=== PATIENT | male | born 1980 | race Caucasian/White ===

== ENCOUNTER 2018-02-23 08:02 | Outpatient (CLI) | payer OTHER ==
--- NOTE | 2018-02-23 11:38 | MRI ---
MRI OF THE RIGHT SHOULDER WITHOUT CONTRAST: INDICATION: Pain and swelling with a right shoulder mass. TECHNIQUE: Noncontrast MR images were submitted of the right shoulder. The patient could not complete the entir e examination due to discomfort. A surface marker was placed over the palpable region of interest. FINDINGS: There is a 5 x 4.2 x 2.4 cm fat signal intensity mass which is underlying the palpable region of inte rest without definite nodularity. There is some possible mild internal septation in the inferior asp ect of the lesion. There is mild AC joint osteoarthrosis. The rotator cuff is intact. The biceps anchor complex appears intact. The inferior glenohumeral labral ligamentous complex appears intact. The glenohumeral articular surface is normal appearing. No muscular atrophy is evident. There is re active edema involving the distal clavicle. IMPRESSION: 1. Mild acromioclavicular joint osteoarthrosis, reactive edema within the distal clavicle. 2. Fat signal intensity mass lesion underlying the palpable region of interest is suspicious for a s ubcutaneous lipoma. If this is symptomatic to the patient, a well-differentiated liposarcoma or atyp ical lipoma cannot be entirely excluded. 3. Mild acromioclavicular joint osteoarthrosis with reactive edema in the distal clavicle. POS: [facility]
== END 2018-02-23 08:03 | disposition home or self-care (01) ==
LOC: MRI 08:02
PROVIDERS: ATTEND Orthopaedic Surgery
DX: R22.31 Localized swelling, mass and lump, right upper limb (principal); M25.511 Pain in right shoulder; M19.012 Primary osteoarthritis, left shoulder; R60.0 Localized edema

== ENCOUNTER 2018-02-23 09:12 | Emergency (ER) | payer OTHER | END 2018-02-23 10:33 | disposition home or self-care (01) | LOC: ERS 09:12 | DX: R22.9 Localized swelling, mass and lump, unspecified (principal); M25.511 Pain in right shoulder; I10 Essential (primary) hypertension; Z87.891 Personal history of nicotine dependence; Z79.899 Other long term (current) drug therapy; X50.9XXA Other and unspecified overexertion or strenuous movements or postures, initial encounter | CPT/HCPCS: 99283 ==

== ENCOUNTER 2018-03-13 15:43 | Outpatient (CLI) | payer OTHER ==
[2018-03-13 16:28] LABS: Hemoglobin 15.8 g/dL (14.0-18.0); Mean Corpuscular Hemoglobin 27.9 pg (27.0-31.0); Mean Corpuscular Volume 84.6 fl (80.0-94.0); Mean Platelet Volume 7.5 fL (7.4-10.4); Platelet Count 296 thou/uL (130-400); RBC Distribution Width 13.3 % (11.5-14.5); Red Blood Cell (RBC) Count 5.66 mill/uL (4.70-6.10); White Blood Cell (WBC) Count 8.9 thou/uL (4.8-10.8)
[2018-03-13 16:41] LABS: Anion Gap 15 mmol/L (10-20); BUN (Urea Nitrogen) 17 mg/dL (8.9-20.6); Calc. Creatinine Clearance 0 mL/min (70-130); Calcium 9.6 mg/dL (7.8-10.44); Carbon Dioxide 25 mmol/L (22-29); Chloride 105 mmol/L (98-107); Estimated GFR-MDRD Greater than 90; Glucose 111 mg/dL (70-105); Potassium 4.6 mmol/L (3.5-5.1); Sodium 140 mmol/L (136-145)
== END 2018-03-13 15:44 | disposition home or self-care (01) ==
LOC: LABBT 15:43
PROVIDERS: ATTEND Orthopaedic Surgery
DX: Z01.818 Encounter for other preprocedural examination (principal); D17.21 Benign lipomatous neoplasm of skin and subcutaneous tissue of right arm; M25.511 Pain in right shoulder
CPT/HCPCS: 80048; 85027; 93005; 93010

== ENCOUNTER 2018-03-20 08:02 | Day surgery (SDC) | payer OTHER ==
[2018-03-13 16:01] VITALS: BMI 42.8
[2018-03-20] MEDS ORDERED: CEFAZOLIN/Water 2 GM/20 ML SYRINGE ONE (09:13)
[2018-03-20] MEDS ORDERED: Fentanyl 100 MCG/2 ML VIAL ONE (10:33)
[2018-03-20] MEDS ORDERED: Midazolam HCl 2 mg/2 ml Vial ONE (10:33)
[2018-03-20] MEDS ORDERED: Ropivacaine 0.2% 550 ML 550 ML NERVE BLCK SCH (11:01)
[2018-03-20] MEDS ORDERED: Zolpidem Tartrate 5 MG TAB PO PRN (11:01)
[2018-03-20] MEDS ORDERED: Ondansetron HCl/PF 4 MG/2 ML Vial IVP PRN (11:01)
[2018-03-20] MEDS ORDERED: Promethazine HCl 25 MG/ML VIAL IM PRN (11:01)
[2018-03-20] MEDS ORDERED: traMADol HCl 50 MG TAB PO PRN ×2 (11:01)
[2018-03-20] MEDS ORDERED: HYDROcodone/Acetaminophen 10/325 mg Tablet PO PRN ×2 (11:01)
[2018-03-20] MEDS ORDERED: Fentanyl 100 MCG/2 ML VIAL IV PRN (11:02)
[2018-03-20] MEDS ORDERED: Bupivacaine/Epinephrine 0.25% 30 ML VIAL ONE (11:53)
[2018-03-20] MEDS ORDERED: Promethazine HCl 25 MG/ML VIAL ONE (13:57)
--- NOTE | 2018-03-20 17:56 | OP ---
DATE OF PROCEDURE: 03/20/2018 PREOPERATIVE DIAGNOSES: 1. 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 2. Acromioclavicular joint arthritis. POSTOPERATIVE DIAGNOSES: 1. 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 2. Acromioclavicular joint arthritis. 3. Posterior labral tear, right shoulder. PROCEDURES PERFORMED: 1. Right shoulder arthroscopy with debridement and shaving of posterior labrum. 2. Open removal of lipoma. 3. Open distal clavicle resection. SURGEON: Willian Villalpando M.D. GEODUCK DIVER: Saúl Heck PA-C. BLOOD LOSS: Approximately 50 mL COMPLICATIONS: None. IMPLANTS: There were no implants. ANESTHESIA: He did have a general anesthetic. He also had a block. CONDITION: He did go to the recovery room in stable condition. INDICATIONS: A 38-year-old male who comes in complaining of pain and problems with the shoulder. MR I was obtained and was found to have a large lipoma, which was bothering him as well as AC joint arth ritis. The remaining portion of the MR was benign. At this time, he opted to have a right shoulder surgery. DESCRIPTION OF PROCEDURE: After all appropriate consent forms were explained and signed, he was take n to the operating room and at this time was given general anesthetic. Once the level of anesthesia was appropriate, he was rolled into the left lateral decubitus position with all bony prominences wel l-padded. Axillary roll was placed underneath the left axilla and the lara bag was inflated to hold him in this position. The arm was then suspended 15 pounds in standard surgical fashion. The right shoulder and upper extremity were then prepped and draped in the standard surgical fashion. Bony santa tomic landmarks were drawn out. Subacromial space was then infiltrated with Marcaine with epinephrin e. Posterior portal established and the scope was placed into the shoulder joint. Anterior working portal was then made using a needle localization technique. Diagnostic arthroscopy commenced in the shoulder joint, articular surface of the humeral head and glenoid were in good condition. Subscapula ris was intact. Bicipital sling was intact. Superior labrum was intact. Biceps was intact. No loo se bodies were noted in the axillary pouch. The posterior labrum; however, had a labral tear with a chunk that was still attached at its base, but it was obviously an area for concern for mechanical ir ritation. This was removed with the shaver without any problem. At this time, scope was removed and shoulder was drained. We then closed our 2 portal sites. We then went to perform our open resectio n. Long oblique incision was made down through skin to expose our lipoma in our distal clavicle. e lipoma was removed in its entirety. It was approximately the size between a racquet ball and a gol f ball and this was taken in its entirety and sent to pathology. There did not appear to be any eros ana m changes or qualities to this lipoma. At this time, full thickness periosteal flaps were taken to expose the distal clavicle and a saw was used to remove the end of the clavicle. The edges were smo othed off with a rasp and a small amount of bone wax was placed onto the bleeding cancellous bone. W e then thoroughly irrigated our wound. We then used multiple Vicryls to close our periosteal sleeve. We then used inverted Vicryls to tack down the overlying skin and fat to the deeper tissues and we were not to develop a postoperative hematoma. We then used 2-0 Vicryl and nylon sutures to close our incision. A bulky sterile dressing was applied. The patient was then awakened. He was taken to [facility] [place] recovery room in stable condition. All counts were correct at the end of the case and he did recei ve preoperative IV antibiotics.
[2018-03-20] MEDS ORDERED: Ropivacaine 0.5% HCl/PF (150 MG/30 ML VIAL) ONE (19:28)
[2018-03-20] MEDS ORDERED: Ropivacaine 0.2% HCl/PF (40 MG/20 ML VIAL) ONE (19:28)
[2018-03-20] MEDS ORDERED: Glycopyrrolate 0.2 MG/ML 5 ML SYRINGE ONE (19:35)
== END 2018-03-20 15:50 | disposition home or self-care (01) ==
LOC: SDC 08:02
PROVIDERS: ATTEND Orthopaedic Surgery
PROC: 0PB90ZZ Excision of Right Clavicle, Open Approach (ICD-10-PCS; principal; 2018-03-20)
PROC: 0RBJ4ZZ Excision of Right Shoulder Joint, Percutaneous Endoscopic Approach (ICD-10-PCS; principal; 2018-03-20)
PROC: 0JB60ZZ Excision of Chest Subcutaneous Tissue and Fascia, Open Approach (ICD-10-PCS; principal; 2018-03-20)
DX: S43.401A Unspecified sprain of right shoulder joint, initial encounter (principal); D17.21 Benign lipomatous neoplasm of skin and subcutaneous tissue of right arm; M25.511 Pain in right shoulder; M19.011 Primary osteoarthritis, right shoulder; Z87.891 Personal history of nicotine dependence; Z79.899 Other long term (current) drug therapy; Z88.1 Allergy status to other antibiotic agents
CPT/HCPCS: 88304; A4306; J2250; J2550; J2795; J3010; J3370; J7050